=== PATIENT | female | born 1975 | race Caucasian/White ===

== ENCOUNTER 2024-02-27 07:57 | Outpatient (CLI) | payer OTHER, SELFPAY | END 2024-02-27 07:58 | disposition home or self-care (01) | LOC: ANHSURGERY 08:02 | PROVIDERS: PCP Hospitalist; Visit Provider Obstetrics & Gynecology | DX: N39.3 Stress incontinence (female) (male) (principal) | CPT/HCPCS: 36415; 86850; 86900; 86901 ==

== ENCOUNTER 2024-02-29 04:45 | Day surgery (SDC) | payer OTHER, SELFPAY ==
[2024-02-25 08:27] VITALS: BMI 25.0
--- NOTE | 2024-02-25 08:34 | PC.NURSE ---
Report to the Outpatient Waiting Room, entrance under the green pavilion located off [facility], at time _0630_ on date _[id number]_. Planned Procedure Time: _0830_.? Time changes happen often and if your time is changed the preop area will call you the afternoon before. - You and your visitor will be asked to self-screen and do not enter if you have any COVID symptoms. Please call surgeon if you need to reschedule. - A mask is optional within the hospital at this time. Patients may have clear liquids (water, carbonated beverages, clear teas, apple juice) until 3 hours prior to surgery with a maximum of 20 ounces. - No food from midnight until time of surgery and no smoking Take only the following medications with a SIP of water on the morning of surgery: ____None DO NOT STOP ANY OF YOUR OTHER PRESCRIPTION MEDICATIONS PRIOR TO SURGERY EXCEPT THE FOLLOWING Medications to discontinue per physician None Please no make-up, nail greenlandic, hairspray, perfume, deodorant, or body powder the day of surgery.? No jewelry (including any body piercings) or valuables the day of surgery, leave them at home.? Please take a shower or bath the night before, or the morning of, surgery with an antibacterial soap.? Wear comfortable, loose fitting clothing.? - Jewelry must be removed prior to entering the operating room.? Rings and piercings that are not removed may be cut off. - The hospital will not accept responsibility for valuables.? - Please leave all valuables, including medications, at home the day of surgery. If you are going home after surgery, a licensed recycler forklift driver truck driver must drive you home.? - NO public transportation without another adult if you receive anesthesia. - We recommend that an adult stay with you for 24 hours following discharge. - We also recommend that you do not drive, make important decision, drink alcoholic beverages, or take any drugs that were not prescribed by your health care provider for at least 24 hours after your discharge time. Follow any additional instructions given to you from your surgeon. Telephone instructions given to __Vicki__and asked if any additional questions and then verbalized understanding. Patient advised to call surgeon office or pre surgery nurse liaison [phone] if any additional questions.
--- NOTE | 2024-02-28 07:39 | PM.IMHP ---
H&P: HPI History of Present Illness Date/Time: 02/28/24 07:39 Chief Complaint: Right-sided pelvic pain and stress urinary incontinence Narrative: This is a 48-year-old 5 para 5 admitted for laparoscopy in the right supple with a salpingo-oophorectomy with the tension-free vaginal tape she complains of severe right-sided pain. She is status post hysterectomy. She also complains of loss of urine with coughing laughing sneezing. This was duplicated on exam in the office. Risks and benefits of these procedures were reviewed including but not exclusive of , aspiration pneumonia, bleeding, transfusion, perforation injury to bowel, bladder, ureters, or other internal organs with need for open laparotomy. She received the ACOG handout entitled laparoscopy as well as for tension-free vaginal tape para 0. She had all questions answered. She asked to proceed PMF Family History Family History Father Hypertension Mother Hypertension Family history of diabetes mellitus in first degree relative Diabetes mellitus Grandparent Diabetes mellitus Social History Social History Years smoked: 10 Smoking status: Former smoker Tobacco type: cigarettes Second hand tobacco smoke exposure: No Smoking end date: 02/25/16 Alcohol intake: current Substance use type: marijuana Other substance usage details: gummies Less than every 2 weeks. Living arrangements: with family Spiritual care concerns: No Meds Home Medications and Allergies Home Medications Medication Instructions Recorded Confirmed Type No Home Medications 02/25/24 02/25/24 History Allergies Allergy/AdvReac Type Severity Reaction Status Date / Time No Known Allergies Allergy Unknown Verified 02/25/24 08:26 Exam Const: General: cooperative, healthy appearing, comfortable and average body habitus Orientation/consciousness: oriented to person, oriented to place and oriented to time Resp: Effort & Inspection: normal respiratory effort Cardio: Rate: regular rate Rhythm: regular rhythm Heart sounds: S1 normal heart sound present and S2 normal heart sound present GI: Inspection: normal to inspection : External Female Exam: normal external appearance Speculum Exam - Vagina: normal appearance of the vagina and other (Urethral hyperactivity with Valsalva maneuver) Speculum Exam - Cervix: Cervix absent Bimanual exam- vagina & uterus: uterus absent Bimanual Exam- Adnexa, other: tender on the right Assessment and Plan Assessment and plan (1) Pelvic pain: Code(s): R10.2 - Pelvic and perineal pain Status: Acute (2) Primary stress urinary incontinence: Code(s): N39.3 - Stress incontinence (female) (male) Status: Acute Assessment and Plan: Proceed with laparoscopic RSO tension-free vaginal tape
[2024-02-29] VITALS (8 sets, daily range): BP systolic 103–133; BP diastolic 61–76; PULSE 53–88; RESP 14–18; TEMP 36.4–36.6; O2SAT 100
--- NOTE | 2024-02-29 06:56 | WPDHPUPDATE1 ---
History and Physical Update Update Date/Time: 02/29/24 06:56 History and Physical has been reviewed, including an updated exam of the patient. There are NO changes in the patient's condition. Risks, benefits, and alternatives have been discussed and questions answered. Patient agrees to proceed with procedure.
[2024-02-29] MEDS: ACETAMINOPHEN 500 MG TABLET 1000 MG PO (06:57)
[2024-02-29] MEDS: LACTATED RINGERS 1,000 ML 30 ML IV CONT ×2 (07:00→08:37)
[2024-02-29] MEDS: KETOROLAC 15 MG/ML VIAL (*BKC) IV PUSH (07:02)
--- NOTE | 2024-02-29 07:25 | WPDANESEPPF ---
Anes - Initial Pre Proc Eval Procedure: Operation Date: 02/29/24 08:30 Proposed Procedures p Laparoscopic Right Salpingo oophorectomy, - Jossue Snyder MD s Tension Free Vaginal Taping - Jossue Snyder MD Date/Time: 02/29/24 07:25 Surgeon: Jossue Snyder MD Pre Op Diagnosis: right pelvic pain, ishan Patient Data Age: 48 Gender: F Height: 1.68 m Weight: 68 kg Last Vital Signs Temp 97.6 F 02/29/24 06:45 Pulse 76 02/29/24 06:45 Resp 18 02/29/24 06:45 BP 103/61 02/29/24 06:45 Pulse Ox 100 02/29/24 06:45 O2 Del Method Room Air 02/29/24 06:45 Allergies Allergy/AdvReac Type Severity Reaction Status Date / Time No Known Allergies Allergy Unknown Verified 02/29/24 06:43 Home Medications Medication Instructions Recorded Confirmed Type oxycodone-acetaminophen 5 mg-325 1 tablet PO Q4H PRN pain #20 tabs 02/29/24 Rx mg tablet (Percocet) Patient hx anesthesia problems: none Family hx anesthesia problems: none Results Review: All pre-operative results and documents have been reviewed as part of the pre-operative evaluation. [facility] Family History Family History Father Hypertension Mother Hypertension Family history of diabetes mellitus in first degree relative Diabetes mellitus Grandparent Diabetes mellitus Social History Social History Years smoked: 10 Smoking status: Former smoker Tobacco type: cigarettes Second hand tobacco smoke exposure: No Smoking end date: 02/25/16 Alcohol intake: current Substance use type: marijuana Other substance usage details: gummies Less than every 2 weeks. Living arrangements: with family Spiritual care concerns: No Anes - Eval Final PreProcedure Day of Procedure 02/29/24 07:25 Patient weight: normal Heart: regular rate and rhythm Lungs: clear to auscultation Airway: Mallampati scale class II Neurological: alert and oriented Last oral intake: >/= 8 hours ASA classification: II Emergent: no Anesthetic plan: proceed Anesthesia type and monitoring: general ETT and standard monitoring Results Review: All pre-operative results and documents have been reviewed as part of the pre-operative evaluation. Ex smoker, quit approx 2011, 10 pack years. Informed Consent: The patient's anesthetic plan and its attendant risks and benefits were discussed with the patient/family/POA. Questions were solicited and answers provided to the satisfaction of the patient/family/POA.
[2024-02-29] MEDS: ceFAZolin 2 GM/D5W 50 ML 2 GM/50 ML BAG IVPB (07:50)
--- NOTE | 2024-02-29 08:31 | P.OP_ITS ---
Procedure Note - Detailed Date of Procedure 02/29/24 Pre-op Diagnosis right pelvic pain, ishan Post-op Diagnosis Same Procedure Performed Laparoscopic right salpingo-oophorectomy/ tension-free vaginal tape/ cystoscopy Surgeon Jossue Snyder MD Anesthesia General Indications 48 year female status post hysterectomy with stress urinary incontinence right- sided pelvic pain. Findings Uterus and cervix were absent. The right ovarian cyst was present. Description of Procedure Patient was prepped and draped in sterile fashion placed in dorsal position. Excellent general tracheal anesthesia the bladder was drained of clear urine with a 18 Filipino catheter. A sponge stick placed in vagina and the gloves were changed. A supraumbilical incision made the Veress needle passed in the abdomen. Abdomen filled with CO2 gas to 15 mercury. The 5mm trocar advanced through the optic scope with no injury seen. Patient placed in Trendelenburg and a suprapubic incision made. The 5 trocar advanced under direct visualization. A right lower quadrant incision made through the previous incision and a 10mm trocar advanced under direct visualization assuring injury. Right infundibulopelvic structure was skeletonized to remove the right ovary tube clamped, burned, cut and removed hemostasis was assured no other abnormalities were seen in photo documentation was undertaken. The adnexal mass was placed in an Endo-Catch removed through the right lower quadrant. The gas removed from the abdomen the incisions closed with 4 Monocryl glue. Attention was turned to the tension-free vaginal tape portion. The mid under the mid urethra small incision was made and the lateral bladder space was entered by blunt dissection. The 18 Filipino catheter already been placed. The urethral guide was placed and retracted laterally the right retropubic bladder space entered by a 45 degree angle behind the pubic bone [id number]? into the skin. The urethra was retracted the opposite direction and the left retropubic pubic bladder space entered at a 45 degree angle up to 35 through the fascia and skin. The 18 Filipino catheter was removed and the 70degree scope inserted. No injury was seen in each ureter could see be seen flowing freely. The 70degree scope was removed the 18 Filipino catheter was replaced and the tape brought to the level open p.r.n. clamped. It laid flush the plastic was removed mesh cut at the suprapubic area and the vaginal incision closed with a 4-0 monitor was with 3 0 chromic l. Blood loss estimated 100cc. All sponge, needle, instrument counts were correct. There were no immediate complications Implants tension-free vaginal tape device Estimated Blood Loss 100 Drains No Packing No Pathology Yes ( right ovary and portion of tube) Complications No immediate complications Condition Stable Disposition PACU
[2024-02-29] MEDS: oxyCODONE HCL (*CRX) 5 MG TAB IR PO (09:40)
--- NOTE | 2024-02-29 09:45 | SUR.PHASEII ---
Pt requests script for Zofran to go home with in addition to pain medication - MD Irlanda Snyder notified and will send electronically.
--- NOTE | 2024-02-29 10:06 | SUR.PHASEII ---
Pt ambulated to bathroom and voided unmeasured amt of clear yellow urine without difficulty.
== END 2024-02-29 10:16 | disposition home or self-care (01) ==
PROVIDERS: PCP Hospitalist; Visit Provider Obstetrics & Gynecology
PROC: (CPT 49320; principal; 2024-02-29 08:30)
PROC: 0TSD0ZZ Reposition Urethra, Open Approach (ICD-10-PCS; CPT 58661; 2024-02-29 08:30)
DX: N39.3 Stress incontinence (female) (male) (principal); N83.291 Other ovarian cyst, right side; N83.01 Follicular cyst of right ovary; Z79.891 Long term (current) use of opiate analgesic; Z98.890 Other specified postprocedural states; Z87.891 Personal history of nicotine dependence
CPT/HCPCS: 58661; 57288; 88305; A9270; C1771; J0690; J1100; J1885; J2003; J2250; J2371; J2405; J2704; J3010; J7030; J7120